=== PATIENT | male | born 1995 | race Two or more races ===

== ENCOUNTER 2017-03-02 23:51 | Emergency (ER) | payer MEDICAID ==
[~2017-03-02] VITALS: Ht 172.7 cm; Wt 72.6 kg
[2017-03-03 00:23] VITALS: BP 135/74
== END 2017-03-03 02:43 | disposition home or self-care (01) ==
LOC: ER 23:57
DX: L72.0 Epidermal cyst (principal)
CPT/HCPCS: 99283; A4606; Z7610